=== PATIENT | female | born 1965 | race Caucasian/White ===

== ENCOUNTER 2017-05-13 22:56 | Emergency (ER) | payer SELFPAY ==
[~2017-05-13] VITALS: Ht 172.7 cm; Wt 51.0 kg
[2017-05-13 23:19] VITALS: BP 134/82; PULSE 84; RESP 20; TEMP 98.8; O2SAT 98
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
[2017-05-14 00:27] VITALS: BP 106/59; PULSE 72; RESP 16; O2SAT 98
[2017-05-14 02:34] VITALS: BP 108/60
--- NOTE | 2017-05-14 21:24 | EKG ---
Date Performed: 05/13/2017 Time Performed: 23:07:30 PTAGE: 52 years EKG: Sinus rhythm WITH SINUS ARRHYTHMIA NORMAL ECG NO PREVIOUS TRACING DOCTOR: Milton Jackson Interpretating Date/Time 05/14/2017 21:23:58
== END 2017-05-14 02:48 | disposition home or self-care (01) ==
LOC: NEPE 22:56
DX: T40.1X1A Poisoning by heroin, accidental (unintentional), initial encounter (principal); I49.8 Other specified cardiac arrhythmias; F17.200 Nicotine dependence, unspecified, uncomplicated
CPT/HCPCS: 93005; 99283